=== PATIENT | female | born 1990 | race Caucasian/White ===

== ENCOUNTER 2016-11-24 13:40 | Emergency (ER) | payer OTHER ==
[~2016-11-24] VITALS: Ht 152.4 cm; Wt 67.8 kg
[~2016-11-24 13:40] MED LIST: DOCU-144 PO; HYDR-906 PO; HYDR30CR75 PR; LEVE-5 PO; METH500T PO; NAPR-688 PO
[2016-11-24 13:45] VITALS: Ht 152.4 cm; Wt 67.8 kg
[2016-11-24] MEDS ORDERED: IBUP-1542 PO (14:57)
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
== END 2016-11-24 16:29 | disposition home or self-care (01) ==
LOC: E/R 13:40
DX: R07.82 Intercostal pain (principal)
CPT/HCPCS: 99283